=== PATIENT | male | born 1975 | race African-American/Black ===

== ENCOUNTER 2017-07-31 09:03 | Emergency (ER) | payer MEDICAID ==
[~2017-07-31] VITALS: Ht 193 cm; Wt 138.0 kg
[~2017-07-31 09:03] MED LIST: ALBUTEROL
[2017-07-31] MEDS ORDERED: DIPHENHYDRAMINE 25MG CAPSULE PO ONE (12:30)
[2017-07-31] MEDS ORDERED: HYDROCORTISONE 2.5% OINT 20GM TOP SCH (12:30)
[2017-07-31 13:30] VITALS: BP 141/84
== END 2017-07-31 14:01 | disposition home or self-care (01) ==
LOC: ER 09:07
DX: S80.211A Abrasion, right knee, initial encounter (principal); J44.9 Chronic obstructive pulmonary disease, unspecified; K21.9 Gastro-esophageal reflux disease without esophagitis; Z88.5 Allergy status to narcotic agent; Z90.49 Acquired absence of other specified parts of digestive tract; X58.XXXA Exposure to other specified factors, initial encounter; Y93.89 Activity, other specified; Y99.8 Other external cause status; Y92.89 Other specified places as the place of occurrence of the external cause
CPT/HCPCS: 99283; Q0163

== ENCOUNTER 2018-02-03 13:43 | Emergency (ER) | payer MEDICAID ==
[~2018-02-03] VITALS: Ht 177.8 cm; Wt 115.0 kg
[2018-02-03] MEDS ORDERED: IPRATROPIUM BROMIDE (0.02%) 0.5MG/2.5ML NEB HHN STA (14:28)
[2018-02-03] MEDS ORDERED: METHYLPREDNISOLONE SOD SUCC 125 MG/2 ML VIAL IV STA (14:28)
[2018-02-03] MEDS ORDERED: ALBUTEROL (0.083%) 2.5MG/3ML NEB HHN SCH (14:30)
[2018-02-03 15:06] LABS: BASOPHILS % 0.4 % (0.0-2.0); EOSINOPHILS % 0.9 % (0.0-5.0); HEMATOCRIT. 41.9 % (42.0-52.0); HEMOGLOBIN. 14.2 g/dL (14.0-18.0); LYMPHOCYTES % 50.9 % (20.0-50.0); MEAN CORPUSCULAR HEMOGLOBIN 26.9 pg (28.0-32.0); MEAN CORPUSCULAR VOLUME 79.1 fL (80.0-94.0); MEAN PLATELET VOLUME 8.5 fl (7.4-10.4); MONOCYTES % 7.4 % (2.0-8.0); NEUTROPHILS % 40.4 % (40.0-76.0); PLATELET 203 x1000/uL (130-400); RED CELL DISTRIBUTION WIDTH 15.2 % (11.6-14.6)
[2018-02-03 15:07] LABS: CHLORIDE 109 mEq/L (98-107)
[2018-02-03 15:08] LABS: PARTIAL THROMBOPLASTIN TIME 25.8 sec (23.4-31.0)
[2018-02-03] MEDS ORDERED: VISCOUS LIDOCAINE 2% 15 ML UDC PO ONE (16:15)
[2018-02-03] MEDS ORDERED: FAMOTIDINE 20MG TABLET PO ONE (16:15)
[2018-02-03] MEDS ORDERED: MAGNESIUM/ALUMINUM HYDROXIDE/SIMETHICONE 30ML UDC PO ONE (16:15)
[2018-02-03 19:25] VITALS: BP 104/81
== END 2018-02-03 20:05 | disposition home or self-care (01) ==
LOC: ER 14:14
DX: J45.901 Unspecified asthma with (acute) exacerbation (principal); K21.9 Gastro-esophageal reflux disease without esophagitis
CPT/HCPCS: 36415; 71045; 80053; 83880; 84484; 85025; 85610; 85730; 93005; 94640; 96374; 99285; J2930; J7611; Z7610

== ENCOUNTER 2018-07-30 07:45 | Emergency (ER) | payer MEDICAID ==
[~2018-07-30] VITALS: Ht 193 cm; Wt 141.0 kg
[2018-07-30 09:25] LABS: BASOPHILS % 0.4 % (0.0-2.0); EOSINOPHILS % 1.3 % (0.0-5.0); HEMATOCRIT. 42.9 % (42.0-52.0); HEMOGLOBIN. 13.9 g/dL (14.0-18.0); LYMPHOCYTES % 44.1 % (20.0-50.0); MEAN CORPUSCULAR HEMOGLOBIN 25.7 pg (28.0-32.0); MEAN CORPUSCULAR VOLUME 79.5 fL (80.0-94.0); MEAN PLATELET VOLUME 8.6 fl (7.4-10.4); MONOCYTES % 6.9 % (2.0-8.0); NEUTROPHILS % 47.3 % (40.0-76.0); PLATELET 222 x1000/uL (130-400); RED CELL DISTRIBUTION WIDTH 16.2 % (11.6-14.6)
[2018-07-30 09:27] LABS: CHLORIDE 106 mEq/L (98-107)
[2018-07-30 10:29] VITALS: BP 126/85
== END 2018-07-30 10:33 | disposition home or self-care (01) ==
LOC: ER 07:45
DX: R07.89 Other chest pain (principal); R03.0 Elevated blood-pressure reading, without diagnosis of hypertension; F12.90 Cannabis use, unspecified, uncomplicated
CPT/HCPCS: 36415; 71045; 80053; 83880; 84484; 85025; 93005; 99284; Z7610

== ENCOUNTER 2018-10-28 12:34 | Emergency (ER) | payer MEDICAID ==
[~2018-10-28] VITALS: Ht 185.4 cm; Wt 109.0 kg
[2018-10-28 16:41] VITALS: BP 115/92
== END 2018-10-28 16:42 | disposition home or self-care (01) ==
LOC: ER 12:34
DX: B08.4 Enteroviral vesicular stomatitis with exanthem (principal); B35.3 Tinea pedis; J45.909 Unspecified asthma, uncomplicated; K21.9 Gastro-esophageal reflux disease without esophagitis; F12.10 Cannabis abuse, uncomplicated; Z90.49 Acquired absence of other specified parts of digestive tract; Z88.6 Allergy status to analgesic agent; Z88.1 Allergy status to other antibiotic agents
CPT/HCPCS: 99283

== ENCOUNTER 2019-01-11 16:06 | Emergency (ER) | payer MEDICAID ==
[~2019-01-11] VITALS: Ht 193 cm; Wt 148.0 kg
[2019-01-11] MEDS ORDERED: METHOCARBAMOL 750MG TABLET PO STA (22:33)
[2019-01-11] MEDS ORDERED: KETOROLAC 60MG/2ML VIAL IM ONE (22:45)
[2019-01-11 22:59] LABS: CHLORIDE 107 mEq/L (98-107)
[2019-01-11 23:08] LABS: CREATINE KINASE 787 IU/L (39-308)
[2019-01-11] MEDS ORDERED: SODIUM CHLORIDE 0.9% 1,000 ML IV ONE (23:45)
[2019-01-12 01:53] VITALS: BP 123/78
== END 2019-01-12 01:55 | disposition home or self-care (01) ==
LOC: ER 16:06
DX: E86.0 Dehydration (principal); N28.9 Disorder of kidney and ureter, unspecified; M25.511 Pain in right shoulder; Z88.5 Allergy status to narcotic agent; Z88.1 Allergy status to other antibiotic agents
CPT/HCPCS: 36415; 73030; 80048; 82550; 96360; 96372; 99284; J1885

== ENCOUNTER 2019-03-31 14:53 | Emergency (ER) | payer MEDICAID ==
[~2019-03-31] VITALS: Ht 193 cm; Wt 136.0 kg
[2019-03-31] MEDS ORDERED: ACETAMINOPHEN 325MG TABLET PO STA (18:22)
[2019-03-31] MEDS ORDERED: ONDANSETRON HCL 4MG/2ML INJ IV STA (18:22)
[2019-03-31] MEDS ORDERED: SODIUM CHLORIDE 0.9% 1,000 ML IV ONE (18:22)
[2019-03-31] MEDS ORDERED: KETOROLAC 30MG/ML VIAL IV STA (18:22)
[2019-03-31 18:52] LABS: BASOPHILS % 0.4 % (0.0-2.0); EOSINOPHILS % 0.2 % (0.0-5.0); HEMATOCRIT. 43.5 % (42.0-52.0); HEMOGLOBIN. 14.2 g/dL (14.0-18.0); LYMPHOCYTES % 23.2 % (20.0-50.0); MEAN CORPUSCULAR HEMOGLOBIN 26.1 pg (28.0-32.0); MEAN CORPUSCULAR VOLUME 80.4 fL (80.0-94.0); MEAN PLATELET VOLUME 8.3 fl (7.4-10.4); MONOCYTES % 5.8 % (2.0-8.0); NEUTROPHILS % 70.4 % (40.0-76.0); PLATELET 202 x1000/uL (130-400); RED BLOOD CELL COUNT 5.42 mill/uL (4.7-6.1); RED CELL DISTRIBUTION WIDTH 16.6 % (11.6-14.6)
[2019-03-31 18:58] LABS: CHLORIDE 106 mEq/L (98-107)
[2019-03-31 18:59] LABS: INR 1.5; PROTHROMBIN TIME 15.6 sec (9.6-11.0)
[2019-03-31 20:54] LABS: CLARITY URINE CLEAR (CLEAR); COLOR URINE DARK YELLOW (YELLOW); KETONES URINE TRACE (NEGATIVE); LEUKOCYTE ESTERASE URINE TRACE (NEGATIVE); NITRITE URINE NEGATIVE (NEGATIVE); OCCULT BLOOD URINE 2+ (NEGATIVE); PH URINE 5.5 (4.5-8.0); PROTEIN URINE 1+ (NEGATIVE); SPECIFIC GRAVITY URINE 1.038 (1.005-1.030)
[2019-03-31 22:32] VITALS: BP 141/76
== END 2019-03-31 22:32 | disposition home or self-care (01) ==
LOC: ER 14:53
DX: R10.13 Epigastric pain (principal); K44.9 Diaphragmatic hernia without obstruction or gangrene; Z87.891 Personal history of nicotine dependence; F12.10 Cannabis abuse, uncomplicated; J45.909 Unspecified asthma, uncomplicated; Z90.49 Acquired absence of other specified parts of digestive tract; Z98.890 Other specified postprocedural states; Z88.5 Allergy status to narcotic agent; Z88.6 Allergy status to analgesic agent; Z88.1 Allergy status to other antibiotic agents; R11.2 Nausea with vomiting, unspecified; R19.7 Diarrhea, unspecified
CPT/HCPCS: 36415; 74176; 80053; 81003; 83690; 85025; 85610; 96361; 96374; 96375; 99284; J1885; J2405; J7030; Z7610

== ENCOUNTER 2020-05-03 13:48 | Emergency (ER) | payer MEDICAID ==
[~2020-05-03] VITALS: Ht 193 cm; Wt 135.5 kg
[2020-05-03 15:51] VITALS: BP 140/103
== END 2020-05-03 15:54 | disposition home or self-care (01) ==
LOC: ER 13:48
DX: R20.0 Anesthesia of skin (principal); E78.5 Hyperlipidemia, unspecified; E78.00 Pure hypercholesterolemia, unspecified; J45.909 Unspecified asthma, uncomplicated; Z88.5 Allergy status to narcotic agent; Z88.6 Allergy status to analgesic agent; Z88.1 Allergy status to other antibiotic agents; Z90.49 Acquired absence of other specified parts of digestive tract
CPT/HCPCS: 82962; 99283

== ENCOUNTER 2020-05-12 23:10 | Emergency (ER) | payer MEDICAID ==
[~2020-05-12] VITALS: Ht 193 cm; Wt 133.0 kg
[2020-05-13 03:22] VITALS: BP 136/86
== END 2020-05-13 03:23 | disposition home or self-care (01) ==
LOC: ER 23:35
DX: T78.1XXA Other adverse food reactions, not elsewhere classified, initial encounter (principal); E78.00 Pure hypercholesterolemia, unspecified; J45.909 Unspecified asthma, uncomplicated; Z88.8 Allergy status to other drugs, medicaments and biological substances; Z88.6 Allergy status to analgesic agent; Z90.49 Acquired absence of other specified parts of digestive tract; X58.XXXA Exposure to other specified factors, initial encounter
CPT/HCPCS: 99281; 99282

== ENCOUNTER 2021-01-08 15:14 | Emergency (ER) | payer MEDICAID ==
[~2021-01-08] VITALS: Ht 193 cm; Wt 133.0 kg
[2021-01-08 15:32] VITALS: BP 130/91
== END 2021-01-08 19:16 | disposition left against medical advice (07) ==
LOC: ER 15:42
DX: R10.9 Unspecified abdominal pain (principal); Z53.21 Procedure and treatment not carried out due to patient leaving prior to being seen by health care provider

== ENCOUNTER 2022-02-11 20:59 | Emergency (ER) | payer MEDICAID ==
[~2022-02-11] VITALS: Ht 193 cm; Wt 137.0 kg
[2022-02-11 22:16] LABS: BASOPHILS % 0.5 % (0.0-2.0); EOSINOPHILS % 1.3 % (0.0-5.0); HEMATOCRIT. 37.3 % (42.0-52.0); HEMOGLOBIN. 11.8 g/dL (14.0-18.0); LYMPHOCYTES % 39.4 % (20.0-50.0); MEAN CORPUSCULAR HEMOGLOBIN 24.3 pg (28.0-32.0); MEAN CORPUSCULAR VOLUME 76.6 fL (80.0-94.0); MEAN PLATELET VOLUME 8.3 fl (7.4-10.4); MONOCYTES % 6.5 % (2.0-8.0); NEUTROPHILS % 52.3 % (40.0-76.0); PLATELET 265 x1000/uL (130-400); RED BLOOD CELL COUNT 4.86 mill/uL (4.7-6.1); RED CELL DISTRIBUTION WIDTH 17.3 % (11.6-14.6)
[2022-02-11 22:25] LABS: CHLORIDE 111 mEq/L (98-107)
[2022-02-11 22:38] LABS: ETHANOL BLOOD < 10 mg/dL
[2022-02-12] MEDS ORDERED: MAGNESIUM/ALUMINUM HYDROXIDE/SIMETHICONE 30ML UDC PO ONE (00:45)
[2022-02-12] MEDS ORDERED: VISCOUS LIDOCAINE 2% 15 ML UDC PO ONE (00:45)
[2022-02-12 03:03] VITALS: BP 153/90
== END 2022-02-12 03:04 | disposition home or self-care (01) ==
LOC: ER 20:59
DX: R07.89 Other chest pain (principal); R03.0 Elevated blood-pressure reading, without diagnosis of hypertension; Z88.8 Allergy status to other drugs, medicaments and biological substances; Z88.5 Allergy status to narcotic agent; Z88.1 Allergy status to other antibiotic agents
CPT/HCPCS: 36415; 71045; 80053; 80320; 84484; 85025; 93005; 99285; G0480

== ENCOUNTER 2022-07-15 04:53 | Emergency (ER) | payer MEDICAID, OTHER ==
[~2022-07-15] VITALS: Ht 193 cm; Wt 134.0 kg
[2022-07-15 07:13] VITALS: BP 148/108
[2022-07-15 09:14] LABS: BASOPHILS % 0.3 % (0.0-2.0); EOSINOPHILS % 0.6 % (0.0-5.0); HEMATOCRIT. 38.8 % (42.0-52.0); HEMOGLOBIN. 12.5 g/dL (14.0-18.0); LYMPHOCYTES % 33.2 % (20.0-50.0); MEAN CORPUSCULAR HEMOGLOBIN 23.7 pg (28.0-32.0); MEAN CORPUSCULAR VOLUME 73.2 fL (80.0-94.0); MEAN PLATELET VOLUME 8.4 fl (7.4-10.4); MONOCYTES % 6.1 % (2.0-8.0); NEUTROPHILS % 59.8 % (40.0-76.0); PLATELET 230 x1000/uL (130-400); RED CELL DISTRIBUTION WIDTH 18.1 % (11.6-14.6)
[2022-07-15 10:01] LABS: CHLORIDE 105 mEq/L (98-107)
== END 2022-07-15 11:47 | disposition home or self-care (01) ==
LOC: ER 04:53
DX: R07.89 Other chest pain (principal); F12.10 Cannabis abuse, uncomplicated; Z90.49 Acquired absence of other specified parts of digestive tract
CPT/HCPCS: 36415; 71045; 80048; 83880; 84484; 85025; 99284

== ENCOUNTER 2023-06-14 19:39 | Emergency (ER) | payer MEDICAID, OTHER ==
[~2023-06-14] VITALS: Ht 193 cm; Wt 132.5 kg
[2023-06-14 20:18] VITALS: BP 103/64; PULSE 103; RESP 17; TEMP 98.7; O2SAT 97
[2023-06-14 21:09] LABS: BASOPHILS % 0.5 % (0.0-2.0); DIFFERENTIAL COMMENT 0; EOSINOPHILS % 0.1 % (0.0-5.0); HEMOGLOBIN. 11.8 g/dL (14.0-18.0); LYMPHOCYTES % 9.7 % (20.0-50.0); MEAN CORPUSCULAR HEMOGLOBIN 23.4 pg (28.0-32.0); MEAN CORPUSCULAR VOLUME 73.2 fL (80.0-94.0); MEAN PLATELET VOLUME 8.2 fl (7.4-10.4); MONOCYTES % 6.4 % (2.0-8.0); NEUTROPHILS % 83.3 % (40.0-76.0); PLATELET 186 x1000/uL (130-400); RED BLOOD CELL COUNT 5.05 mill/uL (4.7-6.1); RED CELL DISTRIBUTION WIDTH 18.3 % (11.6-14.6); WHITE BLOOD COUNT 4.6 x1000/uL (4.5-11.0)
[2023-06-14 21:11] LABS: CLARITY URINE CLEAR (CLEAR); COLOR URINE DARK YELLOW (YELLOW); GLUCOSE URINE NEGATIVE (NEGATIVE); KETONES URINE 1+ (NEGATIVE); LEUKOCYTE ESTERASE URINE NEGATIVE (NEGATIVE); NITRITE URINE NEGATIVE (NEGATIVE); OCCULT BLOOD URINE 1+ (NEGATIVE); PROTEIN URINE 1+ (NEGATIVE); SPECIFIC GRAVITY URINE 1.037 (1.005-1.030)
[2023-06-14 21:24] LABS: ALANINE AMINOTRANSFERASE 26 IU/L (10-49); ALBUMIN 4.1 g/dL (3.2-4.8); ASPARTATE AMINOTRANSFERASE 23 IU/L (<34); BILIRUBIN TOTAL 0.3 mg/dL (0.1-1.0); CARBON DIOXIDE 24 mEq/L (21-32); CHLORIDE 105 mEq/L (98-107); CREATININE 1.9 mg/dL (0.6-1.3); GLUCOSE 117 mg/dL (70-105); POTASSIUM 3.5 mEq/L (3.5-5.1); PROTEIN TOTAL 7.4 g/dL (6.0-8.3); SODIUM 140 mEq/L (136-145); TROPONIN I HIGH SENSITIVITY 6 ng/L (3.0-53); UREA NITROGEN BLOOD 16 mg/dL (9-23)
[2023-06-14 21:41] LABS: BACTERIA URINE 2+; SQUAMOUS EPITHELIAL CELL URINE FEW /lpf (RARE/1+); WBC URINE 0-2 /hpf (0-2)
[2023-06-15] MEDS ORDERED: SODIUM CHLORIDE 0.9% 1,000 ML IV NR (00:15)
[2023-06-15] MEDS ORDERED: AMOX1TAB16 MT (00:35)
[2023-06-15] MEDS ORDERED: AZIT250T12 MT (00:35)
[2023-06-15] MEDS ORDERED: AZITHROMYCIN 500MG/250ML 250 ML IV NR (01:15)
[2023-06-15] MEDS ORDERED: CEFTRIAXONE 1GM PREMIX 50 ML IV NR (01:15)
== END 2023-06-15 00:36 | disposition left against medical advice (07) ==
LOC: ER 19:39
DX: R05.9 Cough, unspecified (principal); R50.9 Fever, unspecified; F12.10 Cannabis abuse, uncomplicated; Z88.5 Allergy status to narcotic agent; Z88.1 Allergy status to other antibiotic agents; Z90.49 Acquired absence of other specified parts of digestive tract; Z98.890 Other specified postprocedural states
CPT/HCPCS: 36415; 71045; 80053; 81003; 83880; 84484; 85025; 93005; 99285

== ENCOUNTER 2024-02-06 16:17 | Emergency (ER) | payer MEDICAID, OTHER ==
[~2024-02-06] VITALS: Ht 193 cm; Wt 133.0 kg
[~2024-02-06 16:17] MED LIST changes: +AMOX1TAB16 MT; +AZIT250T12 MT
[2024-02-06 16:22] VITALS: O2SAT 100
[2024-02-06 16:43] LABS: CLARITY URINE CLEAR (CLEAR); COLOR URINE YELLOW (YELLOW); GLUCOSE URINE NEGATIVE (NEGATIVE); KETONES URINE NEGATIVE (NEGATIVE); LEUKOCYTE ESTERASE URINE NEGATIVE (NEGATIVE); NITRITE URINE NEGATIVE (NEGATIVE); OCCULT BLOOD URINE 1+ (NEGATIVE); PROTEIN URINE TRACE (NEGATIVE); SPECIFIC GRAVITY URINE 1.024 (1.005-1.030)
[2024-02-06 16:50] LABS: BASOPHILS % 0.6 % (0.0-2.0); DIFFERENTIAL COMMENT 0; EOSINOPHILS % 0.6 % (0.0-5.0); HEMATOCRIT. 38.2 % (42.0-52.0); HEMOGLOBIN. 11.9 g/dL (14.0-18.0); LYMPHOCYTES % 36.4 % (20.0-50.0); MEAN CORPUSCULAR HEMOGLOBIN 22.6 pg (28.0-32.0); MEAN CORPUSCULAR HGB CONC 31.2 g/dL (31.0-37.0); MEAN CORPUSCULAR VOLUME 72.3 fL (80.0-94.0); MONOCYTES % 4.8 % (2.0-8.0); NEUTROPHILS % 57.6 % (40.0-76.0); PLATELET 235 x1000/uL (130-400); RED BLOOD CELL COUNT 5.28 mill/uL (4.7-6.1); RED CELL DISTRIBUTION WIDTH 18.3 % (11.6-14.6); WHITE BLOOD COUNT 6.4 x1000/uL (4.5-11.0)
[2024-02-06 16:53] LABS: CHLORIDE 109 mEq/L (98-107); POTASSIUM 3.4 mEq/L (3.5-5.1); SODIUM 139 mEq/L (136-145)
[2024-02-06 16:54] LABS: CALCIUM 9.1 mg/dL (8.7-10.4); CARBON DIOXIDE 24 mEq/L (21-32)
[2024-02-06 16:59] LABS: CREATININE 1.3 mg/dL (0.6-1.3); GLUCOSE 161 mg/dL (70-105); UREA NITROGEN BLOOD 12 mg/dL (9-23)
[2024-02-06 17:02] LABS: WBC URINE NONE SEEN /hpf (0-2)
[2024-02-06 17:03] LABS: BACTERIA URINE NONE SEEN; SQUAMOUS EPITHELIAL CELL URINE RARE /lpf (RARE/1+)
[2024-02-06 17:05] LABS: TROPONIN I HIGH SENSITIVITY < 4 ng/L (3.0-53)
[2024-02-06] MEDS: ASPIRIN 325MG TABLET PO ONE (18:34)
[2024-02-06 18:41] VITALS: BP 127/88; PULSE 96; RESP 18; TEMP 37.05852; O2SAT 96
== END 2024-02-06 18:42 | disposition home or self-care (01) ==
LOC: ER 16:17
DX: R07.89 Other chest pain (principal); R42 Dizziness and giddiness; J45.909 Unspecified asthma, uncomplicated; E78.00 Pure hypercholesterolemia, unspecified; F12.10 Cannabis abuse, uncomplicated; Z90.49 Acquired absence of other specified parts of digestive tract
CPT/HCPCS: 36415; 71045; 80048; 81003; 84484; 85025; 85379; 93005; 99285

== ENCOUNTER 2024-08-01 15:04 | Emergency (ER) | payer MEDICAID, OTHER ==
[~2024-08-01] VITALS: Ht 193 cm; Wt 132.9 kg
[2024-08-01 15:15] VITALS: O2SAT 98
[2024-08-01 19:39] LABS: BASOPHILS % 0.4 % (0.0-2.0); DIFFERENTIAL COMMENT 0; EOSINOPHILS % 0.7 % (0.0-5.0); HEMATOCRIT. 39.8 % (42.0-52.0); HEMOGLOBIN. 12.8 g/dL (14.0-18.0); MEAN CORPUSCULAR HEMOGLOBIN 24.6 pg (28.0-32.0); MEAN CORPUSCULAR HGB CONC 32.1 g/dL (31.0-37.0); MEAN CORPUSCULAR VOLUME 76.6 fL (80.0-94.0); MEAN PLATELET VOLUME 8.5 fl (7.4-10.4); MONOCYTES % 6.2 % (2.0-8.0); NEUTROPHILS % 53.7 % (40.0-76.0); PLATELET 245 x1000/uL (130-400); RED CELL DISTRIBUTION WIDTH 17.2 % (11.6-14.6); WHITE BLOOD COUNT 6.3 x1000/uL (4.5-11.0)
[2024-08-01 19:53] LABS: CHLORIDE 108 mEq/L (98-107); POTASSIUM 3.5 mEq/L (3.5-5.1); SODIUM 144 mEq/L (136-145)
[2024-08-01 19:54] LABS: CARBON DIOXIDE 30 mEq/L (21-32)
[2024-08-01 19:55] LABS: CALCIUM 9.2 mg/dL (8.7-10.4)
[2024-08-01 19:59] LABS: CREATININE 1.1 mg/dL (0.6-1.3); GLUCOSE 90 mg/dL (70-105); UREA NITROGEN BLOOD 7 mg/dL (9-23)
[2024-08-01 20:00] LABS: TROPONIN I HIGH SENSITIVITY 4 ng/L (3.0-53)
[2024-08-01] MEDS ORDERED: ACET-2708 MT (20:15)
[2024-08-01 21:14] VITALS: BP 138/88; PULSE 81; RESP 18; TEMP 36.7; O2SAT 98
== END 2024-08-01 21:15 | disposition home or self-care (01) ==
LOC: ER 15:04
DX: R55 Syncope and collapse (principal); J45.909 Unspecified asthma, uncomplicated; F12.90 Cannabis use, unspecified, uncomplicated; E78.00 Pure hypercholesterolemia, unspecified; Z88.5 Allergy status to narcotic agent; Z90.49 Acquired absence of other specified parts of digestive tract; Z79.899 Other long term (current) drug therapy
CPT/HCPCS: 36415; 71045; 80048; 84484; 85025; 93005; 99285

== ENCOUNTER 2024-11-10 23:49 | Emergency (ER) | payer MEDICAID, OTHER ==
[~2024-11-10] VITALS: Ht 193 cm; Wt 136.0 kg
[~2024-11-10 23:49] MED LIST changes: +ACET-2708 MT
[2024-11-11 00:09] VITALS: TEMP 36.8; O2SAT 99
[2024-11-11 01:01] LABS: BASOPHILS % 0.6 % (0.0-2.0); DIFFERENTIAL COMMENT 0; EOSINOPHILS % 1.2 % (0.0-5.0); HEMATOCRIT. 39.5 % (42.0-52.0); HEMOGLOBIN. 12.4 g/dL (14.0-18.0); LYMPHOCYTES % 31.2 % (20.0-50.0); MEAN CORPUSCULAR HEMOGLOBIN 23.7 pg (28.0-32.0); MEAN CORPUSCULAR HGB CONC 31.4 g/dL (31.0-37.0); MEAN CORPUSCULAR VOLUME 75.7 fL (80.0-94.0); MEAN PLATELET VOLUME 8.1 fl (7.4-10.4); MONOCYTES % 6.9 % (2.0-8.0); NEUTROPHILS % 60.1 % (40.0-76.0); PLATELET 244 x1000/uL (130-400); RED BLOOD CELL COUNT 5.22 mill/uL (4.7-6.1); RED CELL DISTRIBUTION WIDTH 17.4 % (11.6-14.6); WHITE BLOOD COUNT 7.9 x1000/uL (4.5-11.0)
[2024-11-11 01:14] LABS: CHLORIDE 108 mEq/L (98-107); POTASSIUM 3.3 mEq/L (3.5-5.1); SODIUM 144 mEq/L (136-145)
[2024-11-11 01:15] LABS: CALCIUM 9.1 mg/dL (8.7-10.4); CARBON DIOXIDE 27 mEq/L (21-32)
[2024-11-11 01:19] LABS: CREATININE 1.2 mg/dL (0.6-1.3); GLUCOSE 143 mg/dL (70-105)
[2024-11-11 01:20] LABS: TROPONIN I HIGH SENSITIVITY 6 ng/L (3.0-53); UREA NITROGEN BLOOD 14 mg/dL (9-23)
[2024-11-11 02:24] LABS: CLARITY URINE CLEAR (CLEAR); COLOR URINE YELLOW (YELLOW); GLUCOSE URINE NEGATIVE (NEGATIVE); KETONES URINE NEGATIVE (NEGATIVE); LEUKOCYTE ESTERASE URINE NEGATIVE (NEGATIVE); NITRITE URINE NEGATIVE (NEGATIVE); OCCULT BLOOD URINE 2+ (NEGATIVE); PH URINE 6.5 (4.5-8.0); PROTEIN URINE NEGATIVE (NEGATIVE); SPECIFIC GRAVITY URINE 1.019 (1.005-1.030)
[2024-11-11 02:50] LABS: BACTERIA URINE NONE SEEN; SQUAMOUS EPITHELIAL CELL URINE NONE SEEN /lpf (RARE/1+); WBC URINE NONE SEEN /hpf (0-2)
[2024-11-11] MEDS: METOPROLOL SUCCINATE 50MG ER TABLET PO STA (03:10)
[2024-11-11 03:15] LABS: TROPONIN I HIGH SENSITIVITY 5 ng/L (3.0-53)
[2024-11-11 03:49] VITALS: BP 147/92; PULSE 84; RESP 18; O2SAT 95
== END 2024-11-11 03:49 | disposition home or self-care (01) ==
LOC: ER 11-11 00:21
DX: R07.89 Other chest pain (principal); F12.10 Cannabis abuse, uncomplicated; E78.00 Pure hypercholesterolemia, unspecified; J45.909 Unspecified asthma, uncomplicated; I10 Essential (primary) hypertension; Z88.5 Allergy status to narcotic agent; Z79.899 Other long term (current) drug therapy; Z90.49 Acquired absence of other specified parts of digestive tract
CPT/HCPCS: 36415; 71045; 80048; 81003; 84484; 85025; 93005; 99285

== ENCOUNTER 2024-12-05 12:46 | Emergency (ER) | payer MEDICAID ==
[~2024-12-05] VITALS: Ht 193 cm; Wt 136.0 kg
[2024-12-05 13:11] VITALS: TEMP 36.7; O2SAT 98
[2024-12-05 16:09] LABS: BASOPHILS % 0.3 % (0.0-2.0); DIFFERENTIAL COMMENT 0; EOSINOPHILS % 0.8 % (0.0-5.0); HEMATOCRIT. 36.3 % (42.0-52.0); HEMOGLOBIN. 11.5 g/dL (14.0-18.0); LYMPHOCYTES % 33.9 % (20.0-50.0); MEAN CORPUSCULAR HGB CONC 31.7 g/dL (31.0-37.0); MEAN CORPUSCULAR VOLUME 75.7 fL (80.0-94.0); MEAN PLATELET VOLUME 8.3 fl (7.4-10.4); MONOCYTES % 7.4 % (2.0-8.0); NEUTROPHILS % 57.6 % (40.0-76.0); PLATELET 252 x1000/uL (130-400); RED CELL DISTRIBUTION WIDTH 17.4 % (11.6-14.6); WHITE BLOOD COUNT 6.6 x1000/uL (4.5-11.0)
[2024-12-05 16:15] LABS: CHLORIDE 107 mEq/L (98-107); POTASSIUM 3.7 mEq/L (3.5-5.1); SODIUM 144 mEq/L (136-145)
[2024-12-05 16:16] LABS: CARBON DIOXIDE 28 mEq/L (21-32)
[2024-12-05 16:17] LABS: CALCIUM 9.2 mg/dL (8.7-10.4)
[2024-12-05 16:22] LABS: CREATININE 1.3 mg/dL (0.6-1.3); GLUCOSE 93 mg/dL (70-105); UREA NITROGEN BLOOD 12 mg/dL (9-23)
[2024-12-05 16:24] LABS: TROPONIN I HIGH SENSITIVITY 4 ng/L (3.0-53)
[2024-12-05] MEDS ORDERED: AMLO5TAB88 MT (16:27)
[2024-12-05 16:59] VITALS: BP 167/91; PULSE 76; RESP 18; O2SAT 99
== END 2024-12-05 17:05 | disposition home or self-care (01) ==
LOC: ER 12:46
DX: I10 Essential (primary) hypertension (principal); J45.909 Unspecified asthma, uncomplicated; E78.00 Pure hypercholesterolemia, unspecified; F12.90 Cannabis use, unspecified, uncomplicated; Z90.49 Acquired absence of other specified parts of digestive tract; Z79.899 Other long term (current) drug therapy; Z88.5 Allergy status to narcotic agent
CPT/HCPCS: 36415; 80048; 84484; 85025; 99283

== ENCOUNTER 2025-01-30 01:33 | Emergency (ER) | payer MEDICAID ==
[~2025-01-30] VITALS: Ht 193 cm; Wt 137.0 kg
[~2025-01-30 01:33] MED LIST changes: +AMLO5TAB88 MT
[2025-01-30 01:51] VITALS: O2SAT 97
[2025-01-30] MEDS ORDERED: ACETAMINOPHEN 325MG TABLET PO ONE (03:00)
[2025-01-30] MEDS ORDERED: AMLODIPINE 5MG TABLET PO ONE (03:30)
[2025-01-30 03:35] LABS: CREATININE 1.2 mg/dL (0.6-1.3); UREA NITROGEN BLOOD 9 mg/dL (9-23)
[2025-01-30 03:36] LABS: TROPONIN I HIGH SENSITIVITY 5 ng/L (3.0-53)
[2025-01-30 03:48] LABS: BASOPHILS % 0.4 % (0.0-2.0); EOSINOPHILS % 1.0 % (0.0-5.0); HEMATOCRIT. 36.5 % (42.0-52.0); HEMOGLOBIN. 11.7 g/dL (14.0-18.0); LYMPHOCYTES % 35.3 % (20.0-50.0); MEAN PLATELET VOLUME 8.6 fl (7.4-10.4); MONOCYTES % 6.4 % (2.0-8.0); NEUTROPHILS % 56.9 % (40.0-76.0); PLATELET 240 x1000/uL (130-400); RED BLOOD CELL COUNT 4.96 mill/uL (4.7-6.1); RED CELL DISTRIBUTION WIDTH 17.6 % (11.6-14.6)
[2025-01-30 05:42] LABS: TROPONIN I HIGH SENSITIVITY < 4 ng/L (3.0-53)
[2025-01-30] MEDS ORDERED: AMLO5TAB88 MT (06:03)
[2025-01-30] MEDS: ASPIRIN 81MG TABLET PO ONE (06:54)
[2025-01-30] MEDS: AMLODIPINE 5MG TABLET PO SCH (06:54)
[2025-01-30] MEDS: ACETAMINOPHEN 325MG TABLET PO SCH (06:55)
[2025-01-30 08:11] VITALS: BP 152/97; PULSE 69; RESP 18; TEMP 36.7; O2SAT 99
[2025-01-30] MEDS: ASPIRIN 81MG TABLET PO SCH (08:25)
== END 2025-01-30 10:11 | disposition home or self-care (01) ==
LOC: ER 01:33
DX: I10 Essential (primary) hypertension (principal); R07.89 Other chest pain; E78.00 Pure hypercholesterolemia, unspecified; F12.90 Cannabis use, unspecified, uncomplicated; J45.909 Unspecified asthma, uncomplicated; Z90.49 Acquired absence of other specified parts of digestive tract; Z88.5 Allergy status to narcotic agent
CPT/HCPCS: 80048; 85025; 84484; 36415; 71045; 93005; 99285; Z7610

== ENCOUNTER 2025-02-22 16:35 | Emergency (ER) | payer MEDICAID ==
[~2025-02-22] VITALS: Ht 193 cm; Wt 137.0 kg
[2025-02-22 16:47] VITALS: O2SAT 97
[2025-02-22 17:34] LABS: BASOPHILS % 0.3 % (0.0-2.0); EOSINOPHILS % 1.3 % (0.0-5.0); HEMATOCRIT. 37.7 % (42.0-52.0); HEMOGLOBIN. 11.9 g/dL (14.0-18.0); LYMPHOCYTES % 39.2 % (20.0-50.0); MEAN PLATELET VOLUME 8.4 fl (7.4-10.4); MONOCYTES % 7.8 % (2.0-8.0); NEUTROPHILS % 51.4 % (40.0-76.0); PLATELET 242 x1000/uL (130-400); RED BLOOD CELL COUNT 5.14 mill/uL (4.7-6.1); RED CELL DISTRIBUTION WIDTH 18.7 % (11.6-14.6)
[2025-02-22 17:45] LABS: CREATININE 1.3 mg/dL (0.6-1.3)
[2025-02-22 17:46] LABS: UREA NITROGEN BLOOD 9 mg/dL (9-23)
[2025-02-22 17:52] LABS: INR 1.0; TROPONIN I HIGH SENSITIVITY < 4 ng/L (3.0-53)
[2025-02-22] MEDS ORDERED: HYDR50TA55 MT (19:02)
[2025-02-22 19:16] VITALS: BP 135/90; PULSE 95; RESP 20; TEMP 36.6; O2SAT 99
== END 2025-02-22 19:18 | disposition home or self-care (01) ==
LOC: ER 16:35
DX: R07.89 Other chest pain (principal); E78.00 Pure hypercholesterolemia, unspecified; F41.9 Anxiety disorder, unspecified; I10 Essential (primary) hypertension; F10.90 Alcohol use, unspecified, uncomplicated; F12.90 Cannabis use, unspecified, uncomplicated; J45.909 Unspecified asthma, uncomplicated; Z88.5 Allergy status to narcotic agent; Z90.49 Acquired absence of other specified parts of digestive tract; Z91.013 Allergy to seafood; Y90.9 Presence of alcohol in blood, level not specified
CPT/HCPCS: 36415; 71045; 80048; 83880; 84484; 85025; 85379; 99284

== ENCOUNTER 2025-05-23 23:09 | Emergency (ER) | payer MEDICAID ==
[~2025-05-23] VITALS: Ht 193 cm; Wt 130.0 kg
[~2025-05-23 23:09] MED LIST changes: +HYDR50TA55 MT
[2025-05-23 23:18] VITALS: O2SAT 97
[2025-05-23 23:53] LABS: BASOPHILS % 0.6 % (0.0-2.0); EOSINOPHILS % 1.0 % (0.0-5.0); HEMATOCRIT. 39.1 % (42.0-52.0); HEMOGLOBIN. 12.3 g/dL (14.0-18.0); LYMPHOCYTES % 35.2 % (20.0-50.0); MEAN PLATELET VOLUME 8.5 fl (7.4-10.4); MONOCYTES % 6.5 % (2.0-8.0); NEUTROPHILS % 56.7 % (40.0-76.0); PLATELET 257 x1000/uL (130-400); RED BLOOD CELL COUNT 5.22 mill/uL (4.7-6.1); RED CELL DISTRIBUTION WIDTH 17.2 % (11.6-14.6)
[2025-05-24 00:24] LABS: CREATININE 1.5 mg/dL (0.6-1.3); ETHANOL BLOOD < 10 mg/dL (<10); UREA NITROGEN BLOOD 13 mg/dL (9-23)
[2025-05-24 00:25] LABS: PROTEIN TOTAL 6.9 g/dL (6.0-8.3); TROPONIN I HIGH SENSITIVITY 7 ng/L (3.0-53)
[2025-05-24 00:26] LABS: ASPARTATE AMINOTRANSFERASE 23 IU/L (<34); BILIRUBIN DIRECT < 0.1 mg/dL (<=3.0); BILIRUBIN TOTAL 0.3 mg/dL (0.1-1.0)
[2025-05-24 00:47] VITALS: TEMP 36.8
[2025-05-24] MEDS ORDERED: SODIUM CHLORIDE 0.9% 1,000 ML IV ONE (01:30)
[2025-05-24 02:00] VITALS: BP 157/100; PULSE 96; RESP 16; O2SAT 99
[2025-05-24] MEDS ORDERED: QUET25TA MT (02:20)
[2025-05-24] MEDS ORDERED: LORA-249 MT (02:20)
[2025-05-24 03:10] LABS: HCG SCREEN NEGATIVE
[2025-05-25] MEDS ORDERED: AMOX1TAB16 MT (14:24)
[2025-05-25] MEDS ORDERED: FLUT9.9S16 BOTHNSTRLS (14:24)
[2025-05-25] MEDS ORDERED: BENZ1LOZ73 MM (14:24)
[2025-05-25] MEDS ORDERED: IBUP-1455 MT (14:24)
== END 2025-05-24 00:34 | disposition home or self-care (01) ==
LOC: ER 23:09
DX: R10.9 Unspecified abdominal pain (principal); R07.9 Chest pain, unspecified; F41.9 Anxiety disorder, unspecified; I10 Essential (primary) hypertension; J45.909 Unspecified asthma, uncomplicated; F12.90 Cannabis use, unspecified, uncomplicated; E86.0 Dehydration; R10.20 Pelvic and perineal pain unspecified side; Z79.899 Other long term (current) drug therapy; Z90.49 Acquired absence of other specified parts of digestive tract; Z91.013 Allergy to seafood; Z88.1 Allergy status to other antibiotic agents; Z88.5 Allergy status to narcotic agent
CPT/HCPCS: 80076; 80048; 80320; 84703; 83880; 83690; 85025; 85379; 84484; 36415; 71045; 93005; 99285; 74176; J7030; G0480

== ENCOUNTER 2025-05-25 13:01 | Emergency (ER) | payer MEDICAID ==
[~2025-05-25] VITALS: Ht 193 cm; Wt 131.0 kg
[~2025-05-25 13:01] MED LIST changes: +QUET25TA MT
[2025-05-25 13:07] VITALS: O2SAT 99
[2025-05-25] MEDS ORDERED: IBUP-1455 MT (14:24)
[2025-05-25] MEDS ORDERED: AMOX1TAB16 MT (14:24)
[2025-05-25] MEDS ORDERED: BENZ1LOZ73 MM (14:24)
[2025-05-25] MEDS ORDERED: FLUT9.9S16 BOTHNSTRLS (14:24)
[2025-05-25 14:57] VITALS: BP 133/93; PULSE 89; RESP 14; TEMP 36.8; O2SAT 99
== END 2025-05-25 15:07 | disposition home or self-care (01) ==
LOC: ER 13:18
DX: J32.9 Chronic sinusitis, unspecified (principal); G57.62 Lesion of plantar nerve, left lower limb; F41.9 Anxiety disorder, unspecified; I10 Essential (primary) hypertension; J45.909 Unspecified asthma, uncomplicated; Z79.899 Other long term (current) drug therapy; Z91.013 Allergy to seafood; Z88.1 Allergy status to other antibiotic agents; Z88.5 Allergy status to narcotic agent
CPT/HCPCS: 93005; 99283